=== PATIENT | female | born 1960 | race Caucasian/White ===

== ENCOUNTER 2016-10-29 16:52 | Emergency (ER) | payer BC, OTHER ==
--- NOTE | 2016-10-29 17:12 | PD ---
HPI Chief Complaint: Psychiatric Symptoms Time Seen by Provider: 17:09 Travel History International Travel<30 days: No Contact w/Intl Traveler<30days: No Traveled to known affect area: No History of Present Illness HPI 56-year-old female brought in under the Tucker act for suicidal ideation. Patient is a chronic alcoholic with multiple medical issues due to EtOH usage including pancreatitis and cirrhosis of the liver. She told her family she is just going to continue to drink until she dies. Patient was recently hospitalized at [facility] for over a week for similar EtOH induced issues. Patient appears intoxicated at this time. [facility] Social History Alcohol Use: Yes Tobacco Use: No Substance Use: No Allergies-Medications (Allergen,Severity, Reaction): Coded Allergies: No Known Allergies (Unverified , 10/29/16) Review of Systems ROS Limitations: Intoxication, Uncooperative Except as stated in HPI: all other systems reviewed are Neg General / Constitutional: No: Fever Eyes: No: Visual changes HENT: No: Headaches Cardiovascular: No: Chest Pain or Discomfort Respiratory: No: Shortness of Breath Gastrointestinal: Positive: Nausea, Abdominal Pain (chronic) Genitourinary: No: Dysuria Musculoskeletal: No: Pain Skin: No Rash Neurologic: No: Weakness Psychiatric: No: Depression Endocrine: No: Polydipsia Hematologic/Lymphatic: No: Easy Bruising Physical Exam Exam Limitations: Intoxication, Poor Historian Narrative GENERAL: Patient appears in no acute distress. She appears intoxicated. She is oriented to self and place. SKIN: Warm and dry. Normal color. Normal turgor. HEAD: Atraumatic. Normocephalic. EYES: Pupils equal and round. No scleral icterus. No injection or drainage. ENT: No nasal bleeding or discharge. Mucous membranes pink and moist. Pharynx is normal. NECK: Trachea midline. Neck is supple and nontender. CARDIOVASCULAR: Regular rate and rhythm. RESPIRATORY: No accessory muscle use. Clear to auscultation. Breath sounds equal bilaterally. MUSCULOSKELETAL: Extremities without clubbing, cyanosis, or edema. No obvious deformities. NEUROLOGICAL: Awake and alert. No obvious cranial nerve deficits. Motor grossly within normal limits. Five out of 5 muscle strength in the arms and legs. Slightly slurred speech. PSYCHIATRIC: Appropriate mood and affect; insight and judgment normal. Data Data Last Documented VS Vital Signs Date Time Temp Pulse Resp B/P Pulse Ox O2 Delivery O2 Flow Rate FiO2 10/29/16 17:34 98.1 118 17 124/79 99 Orders Complete Blood Count With Diff (10/29/16 17:06) Comprehensive Metabolic Panel (10/29/16 17:) Urinalysis - C+S If Indicated (10/29/16 17:06) Psych Screen (10/29/16 17:) Drug Screen, Random Urine (10/29/16 17:06) Alcohol (Ethanol) (10/29/16 17:) Lipase (10/29/16 17:) Labs Laboratory Tests Test 10/29/16 10/29/16 17:30 18:00 White Blood Count 4.7 TH/MM3 Red Blood Count 4.16 MIL/MM3 Hemoglobin 11.8 GM/DL Hematocrit 35.1 % Mean Corpuscular Volume 84.3 FL Mean Corpuscular Hemoglobin 28.4 PG Mean Corpuscular Hemoglobin 33.7 % Concent Red Cell Distribution Width 16.1 % Platelet Count 197 TH/MM3 Mean Platelet Volume 7.6 FL Neutrophils (%) (Auto) 59.3 % Lymphocytes (%) (Auto) 34.7 % Monocytes (%) (Auto) 5.2 % Eosinophils (%) (Auto) 0.3 % Basophils (%) (Auto) 0.5 % Neutrophils # (Auto) 2.8 TH/MM3 Lymphocytes # (Auto) 1.6 TH/MM3 Monocytes # (Auto) 0.2 TH/MM3 Eosinophils # (Auto) 0.0 TH/MM3 Basophils # (Auto) 0.0 TH/MM3 CBC Comment DIFF FINAL Differential Comment Sodium Level 141 MEQ/L Potassium Level 3.7 MEQ/L Chloride Level 101 MEQ/L Carbon Dioxide Level 26.8 MEQ/L Anion Gap 13 MEQ/L Blood Urea Nitrogen 8 MG/DL Creatinine 0.64 MG/DL Estimat Glomerular Filtration 96 ML/MIN Rate Random Glucose 101 MG/DL Calcium Level 8.8 MG/DL Total Bilirubin 0.4 MG/DL Aspartate Amino Transf 54 U/L (AST/SGOT) Alanine Aminotransferase 30 U/L (ALT/SGPT) Alkaline Phosphatase 120 U/L Total Protein 8.1 GM/DL Albumin 3.9 GM/DL Lipase 291 U/L Ethyl Alcohol Level 313 MG/DL Urine Color YELLOW Urine Turbidity CLEAR Urine pH 5.5 Urine Specific [place] 1.011 Urine Protein TRACE mg/dL Urine Glucose (UA) NEG mg/dL Urine Ketones NEG mg/dL Urine Occult Blood TRACE Urine Nitrite NEG Urine Bilirubin NEG Urine Urobilinogen LESS THAN 2.0 MG/DL Urine Leukocyte Esterase TRACE Urine RBC 2 /hpf Urine WBC 6 /hpf Urine Squamous Epithelial 5 /hpf Cells Microscopic Urinalysis Comment CULT NOT INDICATED Urine Opiates Screen NEG Urine Barbiturates Screen NEG Urine Amphetamines Screen NEG Urine Benzodiazepines Screen NEG Urine Cocaine Screen NEG Urine Cannabinoids Screen NEG MDM Medical Decision Making Medical Screen Exam Complete: Yes Emergency Medical Condition: Yes Differential Diagnosis Tucker act. Chronic EtOH abuse. History of cirrhosis. History of pancreatitis. Suicidal ideation. Narrative Course Patient is medically stable at time of exam. Labs ordered including CBC, CMP, urinalysis, lipase, urine drug screen, and alcohol level. CBC is unremarkable. CMP is remarkable for slightly elevated AST at 54. Alkaline phosphatase of 120. Lipase is 291. EtOH level is 313. 1820 hrs. patient eloped from the emergency department staff was restraining another patient. Charge nurse is aware we searched the premises. Patient was not found, and police were called. Diagnosis Primary Impression: Left against medical advice Disposition: 07 AGAINST MEDICAL ADVICE Condition: Stable Edouard Suggs Oct 29, 2016 17:12
[2016-10-29 17:34] VITALS: BP 124/79; PULSE 118; RESP 17; TEMP 98.1; O2SAT 99
[2016-10-29 18:11] LABS: ALT (GPT) 30 U/L (10-53); ANION GAP 13 MEQ/L (5-15); AST (GOT) 54 U/L (15-37); BICARBONATE 26.8 MEQ/L (21.0-32.0); BLOOD UREA NITROGEN 8 MG/DL (7-18); CHLORIDE 101 MEQ/L (98-107); GLOMERULAR FILTRATION RATE 96 ML/MIN (>89); POTASSIUM 3.7 MEQ/L (3.5-5.1); SODIUM (NA) 141 MEQ/L (136-145)
[2016-10-29 18:12] LABS: ALKALINE PHOSPHATASE 120 U/L (45-117); TOTAL BILIRUBIN ADULT 0.4 MG/DL (0.2-1.0)
[2016-10-29 18:17] LABS: AUTOMATED NEUTROPHIL # 2.8 TH/MM3 (1.8-7.7); BASOPHIL % 0.5 % (0.0-2.0); EOSINOPHIL % 0.3 % (0.0-4.0); HEMATOCRIT 35.1 % (35.0-46.0); HEMO FLAGS DIFF FINAL; LYMPH % 34.7 % (9.0-44.0); LYMPHOCYTE # 1.6 TH/MM3 (1.0-4.8); MEAN CELL VOLUME 84.3 FL (80.0-100.0); MEAN CORPUSCULAR HEMOGLOBIN 28.4 PG (27.0-34.0); MEAN CORPUSCULAR HGB CONC 33.7 % (32.0-36.0); MONO % 5.2 % (0.0-8.0); NEUT % 59.3 % (16.0-70.0); PLATELET COUNT 197 TH/MM3 (150-450); RED BLOOD COUNT 4.16 MIL/MM3 (4.00-5.30); RED CELL DISTRIBUTION WIDTH 16.1 % (11.6-17.2); WHITE BLOOD COUNT 4.7 TH/MM3 (4.0-11.0)
[2016-10-29 18:31] LABS: AMPHETAMINE, URINE NEG (NEG); BARBITURATES, URINE NEG (NEG); BLOOD, URINE TRACE (NEG); COCAINE, URINE NEG (NEG); COMMENT (UR) CULT NOT INDICATED; CULTURE IF INDICATED CULT NOT INDICATED; GLUCOSE,URINE NEG (NEG); KETONE, URINE NEG (NEG); NITRITE,URINE NEG (NEG); PH, URINE 5.5 (5.0-8.5); SQUAMOUS EPITHELIAL CELL URINE 5 /hpf (0-5); URINE COLOR YELLOW (YELLW/STRAW)
[2016-10-30] MEDS ORDERED: TRAZ50TA12 PO (02:32)
== END 2016-10-29 21:00 | disposition left against medical advice (07) ==
LOC: NEDAMB 16:52
DX: F10.229 Alcohol dependence with intoxication, unspecified (principal); K70.30 Alcoholic cirrhosis of liver without ascites; K86.0 Alcohol-induced chronic pancreatitis; Z53.29 Procedure and treatment not carried out because of patient's decision for other reasons
CPT/HCPCS: 80053; 80307; 81001; 83690; 85025; 99283

== ENCOUNTER 2016-10-29 23:19 | Emergency (ER) | payer SELFPAY ==
--- NOTE | 2016-10-29 23:47 | PD ---
HPI Chief Complaint: BA Time Seen by Provider: 23:32 Travel History International Travel<30 days: No Contact w/Intl Traveler<30days: No Traveled to known affect area: No History of Present Illness HPI 56-year-old female was brought in for psychiatric evaluation. Patient was Garrett acted earlier today and brought in for suicidal ideation. Patient has history of chronic alcohol abuse. Patient also has history of pancreatitis in the past. Patient was expressing suicidal ideation to the family member this morning. Patient was Garrett acted and brought in for evaluation. Patient states that her last drink was yesterday. Blood test done this morning showed alcohol level 313. LFTs was found to be elevated. Patient was waiting for psychiatric screening. Patient eloped. Police were called. Patient was brought back for evaluation. Patient states that she has not been drinking any alcohol or do any drugs since this morning. She denies any headache. Patient denies any chest pain or shortness of breath. Patient denies abdominal pain. Patient denies any injury. [facility] Social History Alcohol Use: Yes Tobacco Use: No Substance Use: No Allergies-Medications (Allergen,Severity, Reaction): Coded Allergies: No Known Allergies (Unverified , 10/29/16) Review of Systems General / Constitutional: No: Fever Eyes: No: Visual changes HENT: No: Headaches Cardiovascular: No: Chest Pain or Discomfort Respiratory: No: Shortness of Breath Gastrointestinal: No: Abdominal Pain Genitourinary: No: Dysuria Musculoskeletal: No: Pain Skin: No Rash Neurologic: No: Weakness Psychiatric: No: Depression Endocrine: No: Polydipsia Hematologic/Lymphatic: No: Easy Bruising Physical Exam Narrative GENERAL: Well-nourished, well-developed patient. SKIN: Warm and dry. HEAD: Normocephalic. EYES: No scleral icterus. No injection or drainage. NECK: Supple, trachea midline. No JVD or lymphadenopathy. CARDIOVASCULAR: Regular rate and rhythm without murmurs, gallops, or rubs. RESPIRATORY: Breath sounds equal bilaterally. No accessory muscle use. GASTROINTESTINAL: Abdomen soft, non-tender, nondistended. MUSCULOSKELETAL: No cyanosis, or edema. BACK: Nontender without obvious deformity. No CVA tenderness. Neurologic exam normal. MDM Medical Decision Making Medical Screen Exam Complete: Yes Emergency Medical Condition: Yes Differential Diagnosis Differential diagnosis including substance-induced mood disorder, depression, suicidal. Narrative Course 56-year-old female was Garrett acted for suicidal ideation. Patient has history of EtOH abuse. Lab work done this morning. 23:46 PM. Patient is medically cleared for psychiatric evaluation and disposition. Ritchie Suazo MD Oct 29, 2016 23:46
[2016-10-29 23:51] VITALS: BP 116/73; PULSE 101; RESP 16; TEMP 98; O2SAT 96
[2016-10-30] MEDS ORDERED: FLUMAZENIL 0.5 MG/5 ML VIAL IV PUSH PRN (00:45)
[2016-10-30] MEDS ORDERED: LORazepam 2 MG TAB PO PRN (00:45)
[2016-10-30] MEDS ORDERED: LORazepam 1 MG TAB PO PRN (00:45)
[2016-10-30] MEDS ORDERED: LORazepam 2 MG/ML VIAL IV PUSH PRN ×4 (00:45)
[2016-10-30 01:00] VITALS: BP 123/79; PULSE 108; RESP 18
[2016-10-30] MEDS ORDERED: TRAZ50TA12 PO (02:32)
== END 2016-10-30 02:48 ==
LOC: NEPB 23:19 → NEPJ 10-30 02:48
DX: Z02.89 Encounter for other administrative examinations (principal); F10.20 Alcohol dependence, uncomplicated; Z87.19 Personal history of other diseases of the digestive system
CPT/HCPCS: 99284

== ENCOUNTER 2017-06-21 14:09 | Emergency (ER) | payer SELFPAY ==
[~2017-06-21] VITALS: Ht 162.6 cm; Wt 60.0 kg
[~2017-06-21 14:09] MED LIST: TRAZ50TA12 PO
[2017-06-21 14:11] VITALS: BP 133/84; PULSE 116; RESP 20; TEMP 97.9; O2SAT 99
--- NOTE | 2017-06-21 14:21 | PD ---
Physical Exam Date Seen by Provider: Jun 21, 2017 Time Seen by Provider: 14:20 Narrative 56-year-old white female alcoholic presents to emergency department requesting detox. Her last alcoholic beverage was prior to arrival. She states that she is too sick to go to [facility]. Patient claims to have chronic abdominal pain and has had some blood her stool. She feels rundown and weak. She states that she has not been eating. No chest pain or shortness of breath. Pain is moderate. Vital signs reviewed. Pt waiting for bed placement. Data Data Last Documented VS Vital Signs Date Time Temp Pulse Resp B/P (MAP) Pulse Ox O2 Delivery O2 Flow Rate FiO2 06/21/17 14:11 97.9 116 20 133/84 (100) 99 Room Air [facility] Medical Record Reviewed: No Supervised Visit with BUBBA: Eladio Arriola Jun 21, 2017 14:21
== END 2017-06-21 15:49 | disposition left against medical advice (07) ==
LOC: NED 14:09
DX: Z53.21 Procedure and treatment not carried out due to patient leaving prior to being seen by health care provider (principal); R10.9 Unspecified abdominal pain
CPT/HCPCS: 99281